=== PATIENT | female | born 1990 | race Caucasian/White ===

== ENCOUNTER 2020-03-12 11:00 | Outpatient (REF) | payer OTHER, SELFPAY ==
[2020-03-12 11:26] LABS: COVID-19 Test Negative (Negative)
== END 2020-03-12 11:01 | disposition home or self-care (01) ==
LOC: HO.LAB 11:00
PROVIDERS: Visit Provider Internal Medicine
DX: Z20.828 Contact with and (suspected) exposure to other viral communicable diseases (principal)
CPT/HCPCS: 87635

== ENCOUNTER 2020-03-17 15:00 | Outpatient (REF) | payer OTHER, SELFPAY ==
[2020-03-17 15:49] LABS: COVID-19 Test Negative (Negative)
== END 2020-03-17 15:01 | disposition home or self-care (01) ==
LOC: HO.LAB 15:00
PROVIDERS: Visit Provider Internal Medicine
DX: Z20.828 Contact with and (suspected) exposure to other viral communicable diseases (principal)
CPT/HCPCS: 87635

== ENCOUNTER 2020-03-28 14:03 | Outpatient (REF) | payer OTHER, SELFPAY ==
[2020-03-28 15:17] LABS: SARS COV2 PCR INHOUSE NEGATIVE (Negative)
== END 2020-03-28 14:04 | disposition home or self-care (01) ==
LOC: HO.LAB 14:03
PROVIDERS: Visit Provider Internal Medicine
DX: Z20.828 Contact with and (suspected) exposure to other viral communicable diseases (principal)
CPT/HCPCS: U0003

== ENCOUNTER 2020-05-26 06:40 | Outpatient (REF) | payer OTHER, SELFPAY ==
[2020-05-26 07:05] LABS: COVID-19 Test Negative (Negative)
== END 2020-05-26 06:41 | disposition home or self-care (01) ==
LOC: HO.EMPCOV 06:40
PROVIDERS: Visit Provider Internal Medicine
DX: Z20.828 Contact with and (suspected) exposure to other viral communicable diseases (principal)
CPT/HCPCS: 87635; C9803

== ENCOUNTER 2020-08-14 08:18 | Outpatient (REF) | payer OTHER, SELFPAY ==
[2020-08-14 09:13] LABS: COVID-19 Test Negative (Negative); IDNOW Serial# 9DD0AD1C
== END 2020-08-14 08:19 | disposition home or self-care (01) ==
LOC: HO.LAB 08:18
PROVIDERS: Visit Provider Internal Medicine
DX: Z20.822 Contact with and (suspected) exposure to COVID-19 (principal)
CPT/HCPCS: 36415; 87635

== ENCOUNTER 2020-08-18 14:21 | Outpatient (REF) | payer OTHER, SELFPAY ==
[2020-08-18 16:19] LABS: COVID-19 Test Negative (Negative)
== END 2020-08-18 14:22 | disposition home or self-care (01) ==
LOC: HO.EMPCOV 14:21
PROVIDERS: Visit Provider Internal Medicine
DX: Z20.822 Contact with and (suspected) exposure to COVID-19 (principal)
CPT/HCPCS: 36415; 87635; C9803

== ENCOUNTER 2020-11-12 09:03 | Outpatient (REF) | payer OTHER, SELFPAY ==
[2020-11-15 18:51] LABS: TS Negative Control Passed; TS Panel A 0; TS Panel B 0; TS Positive Control Passed; TSpotTB Negative (SeeBelow)
== END 2020-11-12 09:04 | disposition home or self-care (01) ==
LOC: HO.LAB 09:03
PROVIDERS: Referring Provider Physician Assistant; Visit Provider Physician Assistant
DX: Z11.1 Encounter for screening for respiratory tuberculosis (principal)
CPT/HCPCS: 36415; 86481

== ENCOUNTER → 2021-01-14 14:03 | Outpatient (BNVA) | payer SELFPAY | DX: Z76.89 Persons encountering health services in other specified circumstances (principal) ==